=== PATIENT | male | born 1955 | race Caucasian/White ===

== ENCOUNTER → 2017-09-27 12:41 | Outpatient (CLI) | payer MEDICARE, SELFPAY ==
--- NOTE | 2017-09-27 | DI.RAD.S_ITS ---
PROCEDURE: XR LUMBAR SPINE 2-3V INDICATIONS: 61-year-old male with low back pain. TECHNIQUE: 3 views of the lumbar spine were acquired. COMPARISON: None. FINDINGS: Bones: 5 ped-eon-dbcbrxt vertebrae are present. There is grade 1 L4-L5 spondylolisthesis from facet joint degeneration. There is concomitant L4-L5 degenerative disc narrowing. No vertebral body compression fractures. No suspicious bony lesions. Soft tissues: Overlying bowel gas pattern is normal. No suspicious soft tissue calcifications. IMPRESSION: L4-L5 disc and facet joint degeneration, with associated grade 1 spondylolisthesis. Dictated by: Olayinka Wilkerson M.D. on 09/27/2017 at 13:43 Approved by: Olayinka Wilkerson M.D. on 09/27/2017 at 13:44
== END ==
PROVIDERS: Visit Provider Specialist
DX: M47.896 Other spondylosis, lumbar region (principal); M43.16 Spondylolisthesis, lumbar region; M54.5 Low back pain
CPT/HCPCS: 72100

== ENCOUNTER 2017-11-23 16:40 | Emergency (ER) | payer MEDICARE, SELFPAY ==
[2017-11-23 16:55] VITALS: BP 132/88; PULSE 115; RESP 18; TEMP 36.3; O2SAT 95; BMI 34.7
[2017-11-23 18:30] VITALS: BP 116/88; PULSE 109; RESP 16; O2SAT 95
--- NOTE | 2017-11-23 18:51 | ED_ITS ---
HPI - Back Pain/Injury General Chief Complaint: Back Pain/Injury Stated Complaint: BACK PAIN Time Seen by Provider: 11/23/17 18:18 Source: patient Mode of arrival: ambulatory Limitations: no limitations History of Present Illness HPI Narrative: Patient is a 62-year-old male here for evaluation of lower back pain. He does have some tingling that radiate down to his right leg. States he has had back pain in the past but not this bad. He states that this episode has been going on since Monday. He states that on Monday he did bend over to pick something up and since then he has had pain. He states that it is hard for him to sleep but moved. No history of cancer. No falls. No bowel symptoms. No bladder symptoms. No urinary incontinence. No blood in his urine. No fevers. Related Data Home Medications Medication Instructions Recorded Confirmed ASPIRIN (Aspir-Low) 81 mg PO QDAY #0 09/09/10 OMEPRAZOLE 20 mg PO QDAY #0 09/09/10 losartan 50 mg PO QDAY #0 09/09/10 celecoxib [Celebrex] 200 mg PO BID #0 09/17/10 simvastatin [Zocor] 40 mg PO QDAY #0 09/17/10 allopurinol 1 tab PO DAILY 11/23/17 11/23/17 hydrocodone-acetaminophen 1 tab PO Q4-6H PRN MDD 6 tabs 11/23/17 11/23/17 morphine 1 tab PO Q12H 11/23/17 11/23/17 Previous Rx's Medication Instructions Recorded cyclobenzaprine 10 mg PO TID PRN #30 tab 11/23/17 hydrocodone-acetaminophen 1 tab PO Q4-6H PRN #20 tab 11/23/17 meloxicam 7.5 mg PO DAILY #30 tab 11/23/17 Allergies Allergy/AdvReac Type Severity Reaction Status Date / Time No Known Drug Allergies Allergy Verified 11/23/17 16:55 Review of Systems Constitutional Denies fever(s) and Denies frequent falls ENT Ears, Nose, Mouth, and Throat: Denies vertigo and Denies dizziness Cardiovascular Denies chest pain and Denies dyspnea Respiratory Denies dyspnea Gastrointestinal Gastrointestinal: Denies abdominal pain Comments: No bowel incontinence Genitourinary Denies urinary incontinence and Denies urinary urgency Musculoskeletal Reports back pain and Reports tingling (Right leg) Integumentary/Breasts Denies pruritus, Denies lesions and Denies rash Neurologic Denies vertigo, Denies dizziness, Denies frequent falls, Reports radicular pain (Right leg), Reports tingling (Right leg) and Reports paresthesias (Right leg) [facility] Medical History Gastroesophageal reflux disease due to diaphragmatic hernia (Acute) Hyperlipidemia (Acute) Surgical History No pertinent past surgical history (Acute) Social History Smoking Status: Current every day smoker Exam Initial Vital Signs Initial Vital Signs: Vital Signs Temperature 97.4 F L 11/23/17 16:55 Pulse Rate 115 H 11/23/17 16:55 Respiratory Rate 18 11/23/17 16:55 Blood Pressure 132/88 H 11/23/17 16:55 Pulse Oximetry 95 11/23/17 16:55 Const General: cooperative, healthy appearing, well developed, well groomed and No acute distress Orientation: alert, awake and oriented x3 HENMT Head: normal to inspection and normocephalic Resp Effort & Inspection: normal respiratory effort Auscultation: clear to auscultation bilaterally Cardio Rate: regular rate Rhythm: regular rhythm GI Inspection: non-distended Palpation: soft and No firm Skin Lesions: no lesions Rashes: no rashes Neuro General: alert, awake and oriented x3 Motor: muscle tone normal throughout Extrem Other: No gross deformities Strength 5/5 bilateral lower extremities Psych Appearance: grossly normal and well kempt Course Orders Ordered: Discontinued Medications Hydrocodone Bitart/Acetaminophen ([place] 5/325) 2 tab PO NOW ONE Stop: 11/23/17 18:53 Last Admin: 11/23/17 19:25 Dose: 2 tab Ketorolac Tromethamine (Toradol) 30 mg IM NOW ONE Stop: 11/23/17 18:52 Last Admin: 11/23/17 19:27 Dose: 30 mg Vital Signs - 8 hr 11/23/17 18:30 Pulse Rate 109 H Respiratory Rate 16 Blood Pressure [Left Arm] 116/88 H Pulse Oximetry 95 MDM - Back Pain/Injury MDM Narrative Medical decision making narrative: Patient without red flag symptoms concerning for fracture, cauda equina, metastasis. He states that this is the exact same low back pain that he has had in the past only worse this time. Considered other diagnosis such as AAA, renal stone, pyelonephritis however his physical exam is not consistent with these. We did discuss conservative treatments such as staying active, heat, ice, massage. Will send home with blocks a can. Patient states he is not on Celebrex. Will also sent home with Flexeril. He was also given a few pills of [place]. He was given return precautions. He expressed understanding and agreement with plan. Discharge Plan Departure Patient Disposition: Home, Self-Care Clinical Impression: Lumbago with sciatica, left side Discharge Date/Time: 11/23/17 20:14 Interventions: ED Discharge Assessment Last Done: 11/23/17 20:13 Instructions: Managing Chronic Low Back Pain, Back Pain (Alternative Therapy), DI for Low Back Pain, Activity May Be Better then Rest for Low Back Pain Recovery Activity Restrictions/Additional Instructions: Recommend that you take the medication like we discussed. Keep your appointment with your primary doctor on Monday of next week. Return to the emergency department for any new or worsening symptoms Prescriptions: New cyclobenzaprine 10 mg tablet 10 mg PO TID PRN (Reason: muscle spasm) Qty: 30 RF: 0 hydrocodone-acetaminophen 5-325 mg tablet 1 tab PO Q4-6H PRN (Reason: pain) Qty: 20 RF: 0 meloxicam 7.5 mg tablet 7.5 mg PO DAILY Qty: 30 RF: 0 No Action losartan 50 MG tablet 50 mg PO QDAY Qty: 0 RF: 0 OMEPRAZOLE 20 mg PO QDAY Qty: 0 RF: 0 ASPIRIN (Aspir-Low) 81 mg PO QDAY Qty: 0 RF: 0 celecoxib [Celebrex] 200 MG capsule 200 mg PO BID Qty: 0 RF: 0 simvastatin [Zocor] 40 MG tablet 40 mg PO QDAY Qty: 0 RF: 0 morphine 30 mg tablet extended release 1 tab PO Q12H RF: 0 hydrocodone-acetaminophen 10-325 mg tablet 1 tab PO Q4-6H MDD 6 tabs PRN (Reason: Pain, Moderate) RF: 0 allopurinol 300 mg tablet 1 tab PO DAILY RF: 0
[2017-11-23] MEDS: HYDROCODONE/ACET 5/325 TABLET 2 TAB PO (19:25)
[2017-11-23] MEDS: KETOROLAC 60 MG/2 ML VIAL 30 MG IM (19:27)
== END 2017-11-23 20:14 | disposition home or self-care (01) ==
PROVIDERS: Emergency Provider Emergency Medicine; Family Provider Specialist; PCP Specialist
DX: M54.42 Lumbago with sciatica, left side (principal)
CPT/HCPCS: 96372; 99282; 99283; J1885

== ENCOUNTER → 2020-07-28 12:19 | Outpatient (CLI) | payer MEDICARE, SELFPAY ==
--- NOTE | 2020-07-28 | DI.RAD.S_ITS ---
PROCEDURE: XR CHEST 2V INDICATIONS: DYSPNEA ON EXERSION TECHNIQUE: 2 views of the chest were acquired. COMPARISON: [facility], CR, XR CHEST 1 VIEW, 07/04/2020, 11:39. FINDINGS: Surgical changes and devices: None. Lungs and pleura: Right basilar opacities are most likely atelectasis. No pleural effusions or pneumothorax. Mediastinum: Mediastinal contours are normal. Heart size is normal. Bones and chest wall: No suspicious bony abnormalities. Soft tissues appear unremarkable. IMPRESSION: No acute cardiopulmonary disease. Right basilar atelectasis. Dictated by: Victor M Diaz M.D. on 07/28/2020 at 12:55 Approved by: Victor M Diaz M.D. on 07/28/2020 at 12:57
[2020-07-28 14:08] LABS: Add Manual Diff / Slide Review NO; Basophils Absolute Auto 100 /uL (0-100); Basophils Percent Auto 0.7 % (0-2); Eosinophils Absolute Auto 200 /uL (0-450); Eosinophils Percent Auto 2.2 % (2-4); Hematocrit 42.1 % (41-53); Hemoglobin 14.1 g/dL (13.5-17.5); Lymphocytes Absolute Auto 2700 /uL (1100-4500); Lymphocytes Percent Auto 30.6 % (25-40); Mean Corpuscular HGB Conc 33.4 % (30-36); Mean Corpuscular Hemoglobin 29.4 PG (26-34); Mean Corpuscular Volume 88.2 fL (80-100); Monocytes Absolute Auto 600 /uL (0-900); Monocytes Percent Auto 6.4 % (3-14); Neutrophils Absolute Auto 5300 /uL (1500-7000); Neutrophils Percent Auto 60.1 % (50-75); Platelet Count 371 X10^3/uL (150-400); Red Blood Cell Count 4.77 X10^6/uL (4.5-5.9); White Blood Cell Count 8.8 X10^3/uL (4.5-11.0)
[2020-07-28 14:33] LABS: BUN Creatinine Ratio 19.7 (6-22); Blood Urea Nitrogen 12 mg/dL (9-20); Calcium 10.5 mg/dL (8.4-10.2); Carbon Dioxide 26 mmol/L (22-32); Chloride 101 mmol/L (98-107); Estimated Glomerular Filt Rate > 60.0 mL/min (>60); Glucose 122 mg/dL (80-110); HEMOLYSIS < 15 (0-50); Potassium 3.9 mmol/L (3.4-5.1); Sodium 141 mmol/L (137-145)
[2020-07-28 14:42] LABS: NT-proBNP (BNP-Adult 18+) 107 pg/mL (<125)
== END ==
PROVIDERS: Family Provider Specialist; PCP Family Medicine; Referring Provider Internal Medicine Cardiovascular Disease; Visit Provider Internal Medicine Cardiovascular Disease
DX: R06.00 Dyspnea, unspecified (principal); I42.8 Other cardiomyopathies; J98.11 Atelectasis
CPT/HCPCS: 36415; 71046; 80048; 83880; 85025